=== PATIENT | female | born 1955 | race Caucasian/White ===

== ENCOUNTER 2024-07-09 09:36 | Emergency (ER) | payer MEDICARE, OTHER, SELFPAY ==
[2024-07-09 09:37] VITALS: BP 172/87
[2024-07-09 09:44] VITALS: BP 174/76
--- NOTE | 2024-07-09 09:55 | ED.GENMED ---
History of Present Illness
General
Chief Complaint: Abdominal Pain
Source: patient
Exam Limitations: none
Time Seen by Provider: 07/09/24 09:45
Nursing documentation reviewed up to this point in time: agreed with
History of Present Illness
History of Present Illness:
Patient presents to ED secondary to 1 month history of diffuse abdominal pain, which has worsened over the past 24 hours. Abdominal pain described as 'burning', diffuse, worse when sitting up, mildly relieved when lying down. Denies loss of
appetite. Denies any exacerbating factors. Denies change in bowel habits. Denies trauma. Patient does report urinary frequency since onset of her symptoms. Patient has been evaluated by her primary care physician, during which time she has
received normal blood work and normal urine study. Patient is scheduled to receive ultrasound of the abdomen as an outpatient next month. Denies previous history of similar symptoms. Patient is abdominal surgery includes hysterectomy 3 years ago.
Review of Systems
Review of Systems
Allergies reviewed?: Yes
Constitutional: Reports no symptoms; Denies fever
EENT: Reports no symptoms
Respiratory: Reports no symptoms
Cardiac: Reports no symptoms
ABD/GI: Reports abdominal pain; Denies nausea, vomiting, diarrhea or constipated
: Reports frequency
Musculoskeletal: Reports back pain
Skin: Reports no symptoms
Neurological: Reports no symptoms
Phy Exam
Physical Exam
Physical Exam:
Physical Exam
General: mild distress, not acutely ill. afebrile
Head: nc/at. eomi
Neck: supple. no meningeal signs.
Heart: s1/s2 regular rate and rhythm, no murmur. equal radial pulses.
Lungs: no acute respiratory distress. clear bilaterally
Abdomen: normal bowel sounds. mild diffuse tenderness to palpation, without distention
Neuro: alert and oriented. no focal neurological deficits
Skin: no rash
Psychiatric: well kept. interactive and cooperative
Extremities: no edema. no calf tenderness.
Course
Orders/Labs/Results
Orders:
Orders
07/09/24 09:53
Iohexol [Omnipaque] See Protocol PO NOW STA
07/09/24 09:54
CT Abd/pel W Iv And Oral Contr Urgent
Comment:
Reason For Exam: mid abdominal pain
0.9% Sodium Chloride 500 ml [Nss] 500 ml IV BOLUS
Pantoprazole [Protonix IV] 40 mg IV NOW STA
07/09/24 10:10
Complete Blood Count/With Diff Urgent
Comprehensive Metabolic Panel Urgent
Lipase Urgent
07/09/24 10:11
Lactic Acid Urgent
Urinalysis Reflex To Culture Urgent
Date Specimen was Collected: 07/09/24
Time Specimen was Collected: 09:58
07/09/24 13:54
US Abdomen Complete/Upper Urgent
Comment:
Reason For Exam: upper abdominal pain
Abnormal Lab Results
07/09/24 07/09/24
10:10 10:11
Hct 35.4 L %
(37.0-47.0)
MCV 79.9 L fL
(81.0-99.0)
Glucose 123 H mg/dl
(70-99)
Lactic Acid 3.2 H mmol/L
(0.7-2.0)
Calcium 11.0 H mg/dl
(8.4-10.2)
Lipase 344 H U/L
(23-300)
07/09/24 10:10
07/09/24 10:10
Vital Signs
Initial and Last Documented VS:
Initial Vital Signs
Temp Pulse Resp BP Pulse Ox
97.6 F 68 18 172/87 98
07/09/24 09:37 07/09/24 09:37 07/09/24 09:37 07/09/24 09:37 07/09/24 09:37
Last Documented Vital Signs
Temp Pulse Resp BP Pulse Ox
97.6 F 67 14 168/70 98
07/09/24 09:37 07/09/24 15:51 07/09/24 15:51 07/09/24 15:51 07/09/24 15:51
MDM/Problems Addressed
MDM/Problems Addressed:
History, exam, and imaging studies consistent with symptoms likely related to gallstones noted in the neck of the gallbladder.
Discussed with on-call GI physician, , who defers management to surgery, as there is no further GI workup indicated.
Discussed with on-call surgeon, , via [employer]. With current findings, if patient's symptoms are adequately controlled, can be seen as outpatient consultation and subsequent surgery.
Pt feels comfortable going home at this time. In addition, pt has an upcoming visit with her primary GI physician with whom she will discuss her treatment options. Advised return to ED with worsening symptoms, i.e. fever/worsening pain/vomiting. Pt
is otherwise afebrile, hemodynamically stable and appears comfortable at time of discharge, to the care of her spouse.
*Critical Care Note
Total Time (30-74mins, 75-104mins- exclusive of procedures): Not Applicable
ED Attending Note
-
Portions of this chart may have been created with voice recognition software.� Occasional wrong word or��sound alike� substitutions may have occurred due to the inherent limitations of voice recognition software.
Discharge Plan
Departure
Patient Disposition: Home (Routine Discharge)
Date of Disposition: 07/09/24
Time of Disposition: 15:48
Patient with high blood pressure during this ER visit?: Yes
Discharge Problem:
Biliary colic
Instructions: Gallstones (DC), Low-fat diet
Referrals:
Latanya Maldonado CRNP [Family Provider] -
Enrike Swann MD [Active] -
Activity Restrictions/Additional Instructions:
As discussed, please follow-up with referred surgeon for further evaluation and treatment. Please return to ED with worsening symptoms, i.e. fever/worsening pain/vomiting.
Interventions
Interventions:
*Risk Screen - Suicide Last Done: 07/09/24 10:21
*General Assessment Last Done: 07/09/24 10:21
*Neglect/Abuse Screening Last Done: 07/09/24 10:21
*ED COVID-19 Vaccine History Last Done: 07/09/24 10:21
*Nursing Disposition Last Done: 07/09/24 16:11
MJ-Ytdfgq-Davsfkrqjs Assessment Last Done: 07/09/24 10:21
Discharge Date and Time
Discharge Date/Time: 07/09/24 16:11
Print Language: ITALIAN
[2024-07-09] MEDS: NSS 500 IV (10:11)
[2024-07-09] MEDS: PROTONIX IV 40 MG IV (10:11)
[2024-07-09] MEDS: OMNIPAQUE 50 ML PO (10:12)
[2024-07-09 10:37] LABS: % Basophils 0.4 % (0-2); % Eosinophils 0.3 % (0-6); % Immature Granulocytes 0.4 % (0-0.5); % Lymphocytes 22.5 % (20.5-51.1); % Monocytes 6.7 % (1.7-9.3); % Neutrophils 69.7 % (42.2-75.2); Absolute Lymphocytes 1.6 10^3/uL (1.2-3.4); Absolute Monocytes 0.5 10^3/uL (0.1-0.6); Hematocrit 35.4 % (37.0-47.0); Hemoglobin 12.3 g/dL (12.0-16.0); Mean Corp Hgb Conc. 34.7 g/dL (33.0-37.0); Mean Corpuscular Hgb 27.8 pg (27.0-31.0); Mean Corpuscular Volume 79.9 fL (81.0-99.0); Mean Platelet Volume 10.1 fL (7.4-10.4); Nucleated Red Blood Cells % 0 %; Platelet Count 271 10^3/uL (130-400); Red Blood Cell Count 4.43 10^6/uL (4.20-5.40); Red Cell Dist. Width 12.8 % (11.5-14.5); White Blood Cell Count 7.2 10^3/uL (4.8-10.8)
[2024-07-09 10:49] LABS: Lactic Acid 3.2 mmol/L (0.7-2.0)
[2024-07-09 10:50] LABS: ALT (SGPT) 24 U/L (0-35); AST (SGOT) 28 U/L (14-36); Albumin 4.8 g/dl (3.5-5.0); Alkaline Phosphatase 68 U/L (38-126); Blood Urea Nitrogen 16 mg/dl (7-17); Carbon Dioxide 22 mmol/L (22-30); Chloride 104 mmol/L (98-107); Glucose 123 mg/dl (70-99); Lipase 344 U/L (23-300); Potassium 4.1 mmol/L (3.5-5.1); Sodium 142 mmol/L (135-145); Total Bilirubin 0.4 mg/dl (0.2-1.3); eGFR > 60.00
[2024-07-09 10:52] LABS: Urine Albumin Negative (Neg - Trace); Urine Bilirubin Negative (Negative); Urine Character Clear (Clear); Urine Color Yellow; Urine Glucose Negative (Negative); Urine Ketone Negative (Negative); Urine Leukocyte Negative (Negative); Urine Nitrite Negative (Negative); Urine Occult Blood Negative (Negative); Urine Urobilinogen Negative (Neg - 1+)
[2024-07-09 15:51] VITALS: BP 168/70
== END 2024-07-09 16:11 | disposition home or self-care (01) ==
LOC: EMR 09:36
PROVIDERS: EMERGENCY PHYSICIAN Emergency Medicine; FAMILY PHYSICIAN Nurse Practitioner Adult Health
DX: K80.20 Calculus of gallbladder without cholecystitis without obstruction (principal); Z90.710 Acquired absence of both cervix and uterus
CPT/HCPCS: 99285; 96374; 96361; 74177; 76700; 80053; 81003; 83605; 83690; 85025; Q9967

== ENCOUNTER 2024-11-02 16:52 | Emergency (ER) | payer MEDICARE, OTHER, SELFPAY ==
[2024-11-02 16:55] VITALS: BP 149/71
[2024-11-02 17:29] LABS: ALT (SGPT) 23 U/L (0-35); AST (SGOT) 23 U/L (14-36); Albumin 4.3 g/dl (3.5-5.0); Alkaline Phosphatase 63 U/L (38-126); Blood Urea Nitrogen 13 mg/dl (7-17); Calcium 10.4 mg/dl (8.4-10.2); Carbon Dioxide 25 mmol/L (22-30); Chloride 97 mmol/L (98-107); Glucose 181 mg/dl (70-99); Lipase 117 U/L (23-300); Potassium 3.9 mmol/L (3.5-5.1); Sodium 136 mmol/L (135-145); Total Bilirubin 0.3 mg/dl (0.2-1.3); Total Protein 6.7 g/dl (6.3-8.2); eGFR > 60.00
[2024-11-02 17:31] LABS: % Basophils 0.3 % (0-2); % Eosinophils 0.3 % (0-6); % Immature Granulocytes 0.2 % (0-0.5); % Lymphocytes 18.6 % (20.5-51.1); % Monocytes 9.6 % (1.7-9.3); Absolute Lymphocytes 1.6 10^3/uL (1.2-3.4); Absolute Monocytes 0.8 10^3/uL (0.1-0.6); Absolute Neutrophils 6.1 10^3/uL (1.4-6.5); Hematocrit 34.1 % (37.0-47.0); Hemoglobin 11.4 g/dL (12.0-16.0); Mean Corp Hgb Conc. 33.4 g/dL (33.0-37.0); Mean Corpuscular Hgb 26.7 pg (27.0-31.0); Mean Corpuscular Volume 79.9 fL (81.0-99.0); Mean Platelet Volume 9.8 fL (7.4-10.4); Nucleated Red Blood Cells % 0 %; Platelet Count 220 10^3/uL (130-400); Red Blood Cell Count 4.27 10^6/uL (4.20-5.40); Red Cell Dist. Width 12.9 % (11.5-14.5); White Blood Cell Count 8.6 10^3/uL (4.8-10.8)
== END 2024-11-02 20:17 | disposition left against medical advice (07) ==
LOC: EMR 16:52
PROVIDERS: EMERGENCY PHYSICIAN Emergency Medicine
DX: R10.9 Unspecified abdominal pain (principal); Z53.21 Procedure and treatment not carried out due to patient leaving prior to being seen by health care provider
CPT/HCPCS: 80053; 83690; 85025

== ENCOUNTER 2024-12-04 06:31 | Day surgery (SDC) | payer MEDICARE, OTHER, SELFPAY ==
[2024-12-04] VITALS (7 sets, daily range): BP systolic 110–188; BP diastolic 58–82; BMI 26.6
[2024-12-04 08:44] LABS: Glucose - Point of Care 140 mg/dl (70-99)
== END 2024-12-04 12:37 | disposition home or self-care (01) ==
LOC: SDS 06:31
PROVIDERS: ATTENDING PHYSICIAN Internal Medicine Gastroenterology
DX: Z12.11 Encounter for screening for malignant neoplasm of colon (principal); D12.2 Benign neoplasm of ascending colon; K64.0 First degree hemorrhoids; K44.9 Diaphragmatic hernia without obstruction or gangrene; K86.89 Other specified diseases of pancreas; K31.89 Other diseases of stomach and duodenum; K80.20 Calculus of gallbladder without cholecystitis without obstruction; K86.2 Cyst of pancreas; R10.84 Generalized abdominal pain; R93.2 Abnormal findings on diagnostic imaging of liver and biliary tract
CPT/HCPCS: 43237; 45385; 43239; 88305; 82962; 88342